=== PATIENT | female | born 1985 | race Caucasian/White ===

== ENCOUNTER 2020-10-12 11:09 | Outpatient (NON) | payer OTHER, SELFPAY ==
[2020-10-13 18:24] LABS: SARS-CoV-2 RNA PCR Negative
== END 2020-10-12 11:10 ==
LOC: ANHCOVIDDT 11:13
PROVIDERS: Visit Provider Physician Assistant Medical
DX: Z20.828 Contact with and (suspected) exposure to other viral communicable diseases (principal); R43.0 Anosmia; R43.2 Parageusia; R51.9 Headache, unspecified
CPT/HCPCS: 87635; C9803; U0003

== ENCOUNTER → 2022-04-04 10:43 | Outpatient (CLI) | payer BC, SELFPAY ==
--- NOTE | ~2022-04-04 | US_ITS ---
EXAMINATION: US OB <=14 wk fetus w TV DATE: 04/04/2022 11:25 INDICATION: First trimester dating and viability assessment TECHNIQUE: Real-time pelvic transabdominal and transvaginal ultrasound was performed. COMPARISON: None. FINDINGS: The uterus measures 12.6 x 6.0 x 8.0 cm. An approximately 3.4 x 3.2 x 3.7 cm isoechoic area of the right uterine body has the appearance of an intramural fibroid. There is an intrauterine gest ational sac. A yolk sac is identified. heart motion is identified measuring 176 beats per minut e (bpm) by M-mode Doppler. The crown rump length measures 2.4 cm , which correlates with an est imated gestational age of 9 weeks and 1 day(s) (+/-) 6 day(s). The right ovary measures 3.3 x 2.8 x 2.9 cm. There appears to be a 1.8 cm corpus luteum of the right ovary. The left ovary measures 3.6 x 2.1 x 3.4 cm. There is normal vascular flow in the ovaries. Ther e is no free fluid in the pelvis. IMPRESSION: 1. Live intrauterine with an estimated gestational age of 9 weeks and 1 day(s) (+/-) 6 day( s) and an estimated delivery date of 11/06/2022. Reviewed, dictated and finalized at location A. IMPRESSION: 1. Live intrauterine with an estimated gestational age of 9 weeks and 1 day(s) (+/-) 6 day(s) and an estimated delivery date of 11/06/2022.
== END ==
PROVIDERS: PCP Family Medicine; Visit Provider Student in an Organized Health Care Education/Training Program
DX: Z34.91 Encounter for supervision of normal pregnancy, unspecified, first trimester (principal); Z3A.09 9 weeks gestation of pregnancy
CPT/HCPCS: 76801; 76817

== ENCOUNTER 2022-08-02 08:51 | Outpatient (CLI) | payer BC, SELFPAY ==
[2022-08-02 10:29] LABS: Basophils Absolute Auto 0.1 K/mm3 (0.0-0.1); Basophils Percent Auto 0.4 % (0.2-1.2); Eosinophils Absolute Auto 0.1 K/mm3 (0-0.3); Eosinophils Percent Auto 0.5 % (0-4.4); Hematocrit 34.6 % (37.0-47.0); Hemoglobin 11.6 g/dL (12.0-15.0); Immature Granulocyte Absolute 0.07 K/mm3 (0.00-0.031); Immature Granulocyte Percent A 0.5 % (0-0.5); Lymphocytes Absolute Auto 2.43 K/mm3 (0.9-3.2); Lymphocytes Percent Auto 18.7 % (18.3-44.2); Mean Corpuscular HGB Conc 33.5 g/dl (32-36); Mean Corpuscular Hemoglobin 30.4 pg (26-34); Mean Corpuscular Volume 90.6 fl (80-100); Monocytes Absolute Auto 0.7 K/mm3 (0.1-0.6); Monocytes Percent Auto 5.2 % (2.6-8.5); Neutrophils Absolute Auto 9.7 K/mm3 (1.3-6.7); Neutrophils Percent Auto 74.7 % (45.5-73.1); Platelet Count Result 295 k/mm3 (150-375); Red Blood Count 3.82 M/mm3 (4.2-5.4); Red Cell Distribution Width 13.2 % (11.5-14.5)
[2022-08-02 10:45] LABS: Glucose 1 Hour PP 50gm Dose 136 mg/dL
== END 2022-08-02 08:52 | disposition home or self-care (01) ==
PROVIDERS: PCP Family Medicine; Visit Provider Student in an Organized Health Care Education/Training Program
DX: Z34.82 Encounter for supervision of other normal pregnancy, second trimester (principal); Z3A.00 Weeks of gestation of pregnancy not specified
CPT/HCPCS: 36415; 82947; 85025

== ENCOUNTER 2022-08-04 07:05 | Outpatient (CLI) | payer BC, SELFPAY ==
[2022-08-04 07:36] LABS: Glucose Fasting Gestational 90 mg/dL (>/=95)
[2022-08-04 09:21] LABS: Glucose 1 Hour Gest 136 mg/dL (>/=180)
[2022-08-04 10:07] LABS: Glucose 2 Hour Gest 139 mg/dL (>/= 155)
[2022-08-04 11:51] LABS: Glucose 3 Hour Gest 90 mg/dL (>/=140)
== END 2022-08-04 07:06 | disposition home or self-care (01) ==
LOC: ANHLAB 07:06
PROVIDERS: PCP Family Medicine; Visit Provider Student in an Organized Health Care Education/Training Program
DX: R73.09 Other abnormal glucose (principal)
CPT/HCPCS: 36415; 82951; 82952

== ENCOUNTER 2022-10-05 16:19 | Outpatient (CLI) | payer BC, SELFPAY ==
[2022-10-05 16:46] VITALS: BP 144/90; PULSE 119
[2022-10-05 17:01] VITALS: BP 138/87; PULSE 116
[2022-10-05 17:15] LABS: Basophils Percent Auto 0.2 % (0.2-1.2); Eosinophils Percent Auto 0.2 % (0-4.4); Hematocrit 36.6 % (37.0-47.0); Hemoglobin 12.6 g/dL (12.0-15.0); Immature Granulocyte Absolute 0.08 K/mm3 (0.00-0.031); Immature Granulocyte Percent A 0.6 % (0-0.5); Lymphocytes Absolute Auto 2.75 K/mm3 (0.9-3.2); Mean Corpuscular HGB Conc 34.4 g/dl (32-36); Mean Corpuscular Volume 87.1 fl (80-100); Mean Platelet Volume 11.9 fl (7.4-10.4); Monocytes Percent Auto 7.4 % (2.6-8.5); Neutrophils Absolute Auto 9.8 K/mm3 (1.3-6.7); Neutrophils Percent Auto 71.6 % (45.5-73.1); Platelet Count Result 285 k/mm3 (150-375); Red Cell Distribution Width 13.4 % (11.5-14.5); White Blood Count 13.7 K/mm3 (4.5-10.0)
[2022-10-05 17:16] VITALS: BP 125/81; PULSE 93
[2022-10-05 17:22] LABS: Appearance Urine Slightly Cloudy (Clear); Bilirubin Urine Negative (Negative); Blood Urine Negative (Negative); Color Urine Yellow (Yellow); Glucose Urine UA Negative (Negative); Ketones Urine 3+ mg/dL (Negative); Leukocyte Esterase Ur Negative LEU/UL (NEGATIVE); Nitrate Urine Negative (Negative); Protein Urine Negative (Negative); Specific Grav Ur >= 1.030 (1.001-1.035); Urobilinogen Urine 0.2 mg/dL (<2.0); pH Urine 5.5 (5.0-9.0)
[2022-10-05 17:28] VITALS: BP 125/81; PULSE 108
[2022-10-05 17:28] LABS: Alanine Aminotransferase 20 U/L (6-35); Albumin Level 3.7 g/dL (3.5-5.1); Alkaline Phosphatase 167 U/L (38-126); Anion Gap 12 mmol/L (8-16); Aspartate Amino Transferase 23 U/L (14-36); Bilirubin,Total 0.4 mg/dL (0.2-1.3); Blood Urea Nitrogen 5 mg/dL (7-17); Calcium 9.1 mg/dL (8.4-10.2); Carbon Dioxide 22 mmol/L (22-30); Chloride 103 mmol/L (98-107); Estimated Glomerular Filt Rate > 60; Glucose 81 mg/dL (65-110); Potassium 3.4 mmol/L (3.4-5.0); Sodium 137 mmol/L (137-145); Uric Acid 3.2 mg/dL (2.5-7.5)
[2022-10-05 17:29] LABS: Bacteria Urine Trace /hpf; Creatinine Urine 117.8 mg/dL; Mucus Urine Few /lpf; Squamous Epithelial Cell Urine Occasional /hpf (Few); Total Protein Urine Random 21 mg/dL; Ur Ttl Prot Creatinine Ratio 0.18 mg/mg (0-0.20); WBC Urine 0-3 /hpf (0-3)
[2022-10-05 17:31] VITALS: BP 134/87; PULSE 88
[2022-10-05 17:43] LABS: Add Urine Microscopic? YES
== END 2022-10-05 17:49 | disposition home or self-care (01) ==
LOC: ANHOBOP 16:22 → ANHLDR 16:22
PROVIDERS: PCP Family Medicine; Visit Provider Student in an Organized Health Care Education/Training Program
DX: O13.9 Gestational [pregnancy-induced] hypertension without significant proteinuria, unspecified trimester (principal); Z3A.00 Weeks of gestation of pregnancy not specified
CPT/HCPCS: 36415; 59025; 80053; 81001; 82570; 84156; 84550; 85025; 87086; 99199

== ENCOUNTER 2022-10-11 09:05 | Outpatient (CLI) | payer BC, SELFPAY ==
[2022-10-11 09:35] LABS: Hematocrit 36.5 % (37.0-47.0); Hemoglobin 12.5 g/dL (12.0-15.0); Mean Corpuscular HGB Conc 34.2 g/dl (32-36); Mean Corpuscular Hemoglobin 29.8 pg (26-34); Mean Corpuscular Volume 87.1 fl (80-100); Mean Platelet Volume 11.8 fl (7.4-10.4); Platelet Count Result 290 k/mm3 (150-375); Red Blood Count 4.19 M/mm3 (4.2-5.4); Red Cell Distribution Width 13.4 % (11.5-14.5); White Blood Count 13.4 K/mm3 (4.5-10.0)
[2022-10-11 15:32] LABS: Rapid Plasma Reagin Non-Reactive (NonReactive)
== END 2022-10-11 09:06 | disposition home or self-care (01) ==
LOC: ANHLAB 09:08
PROVIDERS: PCP Family Medicine; Visit Provider Student in an Organized Health Care Education/Training Program
DX: Z34.93 Encounter for supervision of normal pregnancy, unspecified, third trimester (principal); Z3A.00 Weeks of gestation of pregnancy not specified
CPT/HCPCS: 36415; 85027; 86592; 86850; 86900; 86901

== ENCOUNTER 2022-10-13 05:25 | Inpatient (IN) | payer BC, SELFPAY ==
--- NOTE | 2022-10-12 17:41 | PM.IMHP ---
H&P: HPI History of Present Illness Date/Time: 10/12/22 17:41 Chief Complaint: IUP at 37 weeks gestation Gestational hypertension Previous section x1 Desires permanent sterilization Narrative: Patient is a 36-year-old LMP 01/27/2022 currently 37 weeks gestation with BRICE 11/03/2022 who presents to labor and delivery for scheduled repeat section. Patient is dated by LMP consistent with ultrasound on 04/04/2022 at 9 weeks gestation. Patient has a history of gestational hypertension in previous and over the past few weeks has subsequently developed gestational hypertension in current . Patient has a history of one previous section. Declines TOLAC. In general, patient reports feeling well. Denies any headache, chest pain, shortness of breath, nausea, vomiting, right upper quadrant tenderness, or visual disturbances. She also denies any vaginal bleeding, leakage of fluid, or contractions. Reports good movement. Patient does not desire any future fertility and desires permanent sterilization to be performed at time of section. Review of Systems Review of Systems: All systems reviewed & are unremarkable except as noted in HPI and below Constitutional: Constitutional: Reports as per HPI and Reports no additional constitutional complaints Eyes: Eyes: Reports as per HPI and Reports no additional eye complaints ENT: Reports system reviewed and no additional complaints, except as documented and Reports as per HPI Cardiovascular: Cardiovascular: Reports as per HPI and Reports no additional cardiovascular complaints Respiratory: Respiratory: Reports as per HPI and Reports no additional respiratory complaints Gastrointestinal: Gastrointestinal: Reports as per HPI and Reports no additional gastrointestinal complaints Genitourinary: Genitourinary: Reports no additional female genitourinary complaints and Reports as per HPI Musculoskeletal: Musculoskeletal: Reports no additional musculoskeletal complaints and Reports as per HPI Integumentary/Breasts: Skin/Breast: Reports system reviewed and no additional complaints, except as docu and Reports as per HPI Neurologic: Reports system reviewed and no additional complaints, except as documented and Reports as per HPI Psychiatric: Psychiatric: Reports no additional psychiatric complaints and Reports as per HPI Endocrine: Endocrine: Reports no additional endocrine complaints and Reports as per HPI Hematologic/Lymphatic: Hematologic/Lymphatic: Reports no additional hematologic/lymphatic complaints and Reports as per HPI Allergic/Immunologic: Allergic/Immunologic: Reports no additional allergic/immunologic complaints and Reports as per HPI PMFSH Past Medical History Medical History Human papillomavirus 2010 Other specified viral warts Post- depression Unspecified maternal hypertension, complicating childbirth Surgical History Surgical History History of section x 1 2017 Hx laparoscopic cholecystectomy 07.18.19 Family History Family History Father Hypertension Alcoholism Grandparent Carcinoma of colon Hypertension Cerebrovascular accident Mother Hypertension Thyroid disorder Social History Social History Smoking status: Never smoker Smoking end date: 11/26/08 Alcohol intake: never Substance use: never Spiritual care concerns: No Meds Home Medications and Allergies Home Medications Medication Instructions Recorded Confirmed Type prenat.vits,sabina,jyi-lbdh-xgehz 1 tablet PO DAILY 03/30/22 History aspirin 81 mg tablet,delayed 81 mg PO DAILY 07/05/22 History release cholecalciferol (vitamin D3) 25 25 mcg PO DAILY 07/05/22 History mcg (1,000 unit) capsule
[2022-10-13] VITALS (61 sets, daily range): BP systolic 118–152; BP diastolic 72–95; PULSE 52–108; RESP 16–18; TEMP 36.5–37.8; O2SAT 97–100; BMI 43.3
--- NOTE | 2022-10-13 06:19 | LDADM ---
This patient, Anya Pickering, was admitted to Labor/Delivery/Recovery 120 on 10/13/22 at 05:25. Plans for labor, pain management and were discussed with patient. Patient/family oriented to hospital policies and general routines including ID bracelet, bed and alarms, visiting hours, pain management, procedures, bathroom and other care routines, personal items, smoking policy, room service/diet and guest tray routines, security routines, and visiting hours. Patient/Family are encouraged to report perceived risks to care and to ask questions if they do not understand what they are told or what they should do. See OBIX for further documentation.
[2022-10-13] MEDS: LACTATED RINGERS 1,000 ML 125 ML IV CONT ×2 (06:30→08:00)
--- NOTE | 2022-10-13 07:37 | WPDHPUPDATE1 ---
History and Physical Update Update Date/Time: 10/13/22 07:37 History and Physical has been reviewed, including an updated exam of the patient. There are NO changes in the patient's condition. Risks, benefits, and alternatives have been discussed and questions answered. Patient agrees to proceed with procedure.
[2022-10-13] MEDS: ceFAZolin 2 GM/D5W 50 ML 2 GM/50 ML BAG IVPB (08:11)
--- NOTE | 2022-10-13 10:11 | W.PM.PROC2 ---
Procedure Note - Detailed Date of Procedure 10/13/22 Pre-op Diagnosis IUP at 37w gestation Gestational hypertension Previous C/S x 1 Declines TOLAC Desires permanent sterilization Post-op Diagnosis Same Procedure Performed Repeat low transverse section via Pfannenstiel Bilateral tubal ligation via modified [place] method Surgeon Krystyna Riley MD [employer] Laura Wong Anesthesia Spinal Findings Live male in cephalic presentation, apgars 8/9, weighing 7 lbs. 14 oz., clear amniotic fluid, normal appearing uterus, ovaries, and fallopian tubes bilaterally, approx. 2cm left paratubal cyst Description of Procedure The patient was taken to the operating room, where she self-transferred to the operating room table. Spinal anesthesia was administered and found to be adequate. The patient was placed in dorsal supine position with a leftward tilt. She was prepped and draped in the usual sterile fashion. Spinal anesthesia was tested and found to be adequate. A Pfannenstiel skin incision was made with a scalpel and carried through to underlying layer of fascia with the Bovie. The fascia was incised in the midline and the incision was extended laterally with the use of forceps and De Souza scissors. The inferior aspect of the fascial incision was grasped with Jeremias clamps, elevated, and the underlying rectus muscle were dissected off with De Souza scissors. Attention was then turned to the superior aspect of the fascial incision, which in a similar manner, was grasped with Jeremias clamps, elevated, and the underlying rectus muscles were also dissected off with De Souza scissors. The rectus muscles were in the midline and the peritoneal cavity was entered bluntly. This incision was extended superiorly and inferiorly with good visualization of the bladder and care was taken to avoid blood vessels. A bladder blade was inserted. The vesicouterine peritoneum was identified and incised sharply with Metzenbaum scissors. This incision was extended laterally with Metzenbaum scissors and a bladder flap was created digitally. The bladder blade was replaced. A low-transverse uterine incision was made with a scalpel. This incision was extended laterally with bandage scissors. Amniotomy was performed. Clear amniotic fluid was noted. The 's head was grasped and gently guided to the level of the uterine incision. The 's head was delivered easily and atraumatically without difficulty followed by the neck, shoulders, and rest of body with gentle fundal pressure. The 's nose and mouth were suctioned bulb suction. The infant was crying spontaneously. The cord was clamped and cut and the was handed off to waiting nursing staff. A segment of cord was collected for cord gases. Cord blood was also collected. The placenta was then delivered manually with gentle uterine massage. Uterus was exteriorized and cleared of all clots and debris. The uterine incision was reapproximated with 0 Vicryl in a running, locked fashion. A second imbricating layer using 0 Monocryl performed. A small area of bleeding was noted along incision just right of midline. A figure of eight suture using 0 Monocryl was made. Excellent hemostasis was noted. On inspection, the uterus, ovaries, and fallopian tubes appeared to be normal bilaterally. A 2 cm paratubal cyst on the left side was visualized. Attention was then turned to the left fallopian tube, which was identified and followed through to the fimbriated end. The tube was grasped with a [place] clamp and elevated. With the use of Bovie, a window was created in the mesosalpinx just beneath the tube. Four free ties using 2-0 plain suture were used to create an intervening segment of tube. Two sutures were placed on either side of the intervening segment of tube. An approximate 3 cm segment of intervening tube was then excised with Metzenbaum scissors. The excised portion of the tube was handed off the field to be sent to pathology for analysis
[2022-10-13] MEDS: KETOROLAC 30 MG/ML VIAL (*BKC) IV PUSH (12:08)
--- NOTE | 2022-10-13 12:28 | PC.NURSE ---
Patient transferred to post room #283 via stretcher. Support person present. Oriented to unit, room, information board, rooming in, admission packet and security measures. Patient verbalizes understanding.
[2022-10-13] MEDS: DEXTROSE 5%/0.45% SOD CHL 1,000 ML 125 ML IV CONT (13:02)
[2022-10-13] MEDS: IBUPROFEN 600 MG TABLET PO (18:16)
[2022-10-13] MEDS: HYDROcodone/acetaminophen (*CRX) 5-325 MG TABLET 1 TAB PO ×2 (18:17→23:40)
[2022-10-13] MEDS: DOCUSATE SODIUM 100 MG CAPSULE PO (18:17)
[2022-10-14] MEDS: IBUPROFEN 600 MG TABLET PO ×3 (03:42→17:04)
[2022-10-14] MEDS: SIMETHICONE 80 MG TAB.CHEW PO ×2 (03:53→18:50)
[2022-10-14 04:00] VITALS: BP 158/86; PULSE 110; RESP 20; TEMP 36.7; O2SAT 100
[2022-10-14 05:19] LABS: Basophils Percent Auto 0.3 % (0.2-1.2); Eosinophils Percent Auto 0.2 % (0-4.4); Hematocrit 33.7 % (37.0-47.0); Hemoglobin 11.6 g/dL (12.0-15.0); Immature Granulocyte Absolute 0.09 K/mm3 (0.00-0.031); Immature Granulocyte Percent A 0.6 % (0-0.5); Lymphocytes Absolute Auto 1.86 K/mm3 (0.9-3.2); Lymphocytes Percent Auto 12.3 % (18.3-44.2); Mean Corpuscular HGB Conc 34.4 g/dl (32-36); Mean Corpuscular Hemoglobin 30.4 pg (26-34); Mean Corpuscular Volume 88.2 fl (80-100); Mean Platelet Volume 11.6 fl (7.4-10.4); Monocytes Absolute Auto 1.1 K/mm3 (0.1-0.6); Monocytes Percent Auto 7.4 % (2.6-8.5); Neutrophils Percent Auto 79.2 % (45.5-73.1); Platelet Count Result 215 k/mm3 (150-375); Red Blood Count 3.82 M/mm3 (4.2-5.4); Red Cell Distribution Width 13.5 % (11.5-14.5); White Blood Count 15.1 K/mm3 (4.5-10.0)
[2022-10-14 07:15] VITALS: BP 153/86; PULSE 79; RESP 16; TEMP 36.8; O2SAT 100
[2022-10-14] MEDS: DOCUSATE SODIUM 100 MG CAPSULE PO ×2 (07:36→16:37)
[2022-10-14] MEDS: MULTIVIT/MIN/PREN/FOL AC/IRON TABLET 1 TAB PO (07:37)
[2022-10-14] MEDS: HYDROcodone/acetaminophen (*CRX) 5-325 MG TABLET 1 TAB PO ×5 (07:37→21:35)
--- NOTE | 2022-10-14 08:55 | WPDANLDPN2 ---
Anes-Prog Note L&D Date/Time: 10/14/22 08:55 Comfortable throughout: section Neuraxial method: spinal Epidural/Spinal procedure site: clean & non-tender Neuro status: Neuro function grossly intact. Cardiovascular status: normal Respiratory status: normal Airway patency: baseline Mental status: baseline Post-Op hydration status: normal Vital Signs: Last Vital Signs Temp 36.7 C 10/14/22 04:00 Pulse 110 H 10/14/22 04:00 Resp 20 10/14/22 04:00 BP 158/86 H 10/14/22 04:00 Pulse Ox 100 10/14/22 04:00 O2 Del Method Room Air 10/13/22 12:07 Pain score (VAS): 2/10 I/O: Intake & Output 10/13/22 10/14/22 10/14/22 23:59 07:59 15:59 Intake Total 2620 250 Output Total 2225 1100 Balance 395 -850 Post-procedural complaints: none Patient feedback: Patient satisfied with anesthetic care.
--- NOTE | 2022-10-14 08:56 | WPDANLDNPN2 ---
Anes-Prog Note L&D-Neuraxial Date/Time: 10/14/22 08:56 Neuraxial medications: intrathecal PF morphine Opiod-related complaints: none Patient feedback: Patient satisfied with post-operative pain management.
--- NOTE | 2022-10-14 10:53 | PM.OBPNVD ---
OB - PN: Subj Subjective Date/time seen: 10/14/22 10:53 Patient doing well this AM. States that abdominal/incision pain is reasonably controlled with medication. Reported mild headache earlier, however, patient thinks this was due to caffeine. Denies any chest pain, SOB, N/V. Tolerating PO diet. Reports gas discomfort and feeling bloated. Also reports some referred shoulder pain. Voiding without difficulty. Ambulating well. Passing flatus. OB - PN: Obj Data Labs CBC & Chem 7: 10/14/22 05:11 Labs: Laboratory Results - last 24 hr 10/14/22 05:11 WBC 15.1 H RBC 3.82 L Hgb 11.6 L Hct 33.7 L MCV 88.2 MCH 30.4 MCHC 34.4 RDW 13.5 Plt Count 215 MPV 11.6 H Immature Gran % (Auto) 0.6 H Neut % (Auto) 79.2 H Lymph % (Auto) 12.3 L [place] % (Auto) 7.4 Eos % (Auto) 0.2 Baso % (Auto) 0.3 Lymph # (Auto) 1.86 [place] # (Auto) 1.1 H Eos # (Auto) 0.0 Baso # (Auto) 0.0 Abs Immat Gran (auto) 0.09 H Absolute Neuts (auto) 12.0 H Absolute Nucleated RBC 0.0 Nucleated RBC % 0.0 OB - PN A/P Assessment and Plan (1) Delivery by section using transverse incision of lower segment of uterus: Code(s): O82 - Encounter for delivery without indication Status: Acute Assessment and Plan: POD#1 doing well continue routine postoperative care pain management PRN encourage ambulation and use of IS (2) Gestational hypertension: Code(s): O13.9 - Gestational [-induced] hypertension without significant proteinuria, unspecified trimester Status: Acute Assessment and Plan: pt with hx of GHTN BP elevated, now 140-150s/80-90s asymptomatic will obtain labs begin Labetalol 200mg BID will continue to monitor Time Spent With Patient Time: Total time spent is greater than 50% in coordination of care (as documented) at patient's floor/unit and/or counseling patient: Review of Systems Review of Systems: All systems reviewed & are unremarkable except as noted in HPI and below Exam Const: General: cooperative, healthy appearing, comfortable and no acute distress GI: Inspection: non-distended and obesity GI Palp: Yes Soft to palpation and Yes Tenderness to palpation present (GI) (appropriately) Other: inc covered with bandage, bandage c/d/i Extrem: Right lower extremity: no edema Left lower extremity: no edema Other: no calf tenderness
[2022-10-14 12:00] VITALS: PULSE 100
[2022-10-14] MEDS: LABETALOL HCL 100 MG TABLET 200 MG (12:00)
[2022-10-14 12:09] LABS: Basophils Percent Auto 0.2 % (0.2-1.2); Eosinophils Percent Auto 0.1 % (0-4.4); Hematocrit 32.3 % (37.0-47.0); Hemoglobin 10.8 g/dL (12.0-15.0); Immature Granulocyte Percent A 0.7 % (0-0.5); Lymphocytes Absolute Auto 2.16 K/mm3 (0.9-3.2); Lymphocytes Percent Auto 15.2 % (18.3-44.2); Mean Corpuscular HGB Conc 33.4 g/dl (32-36); Mean Corpuscular Hemoglobin 30.3 pg (26-34); Mean Corpuscular Volume 90.5 fl (80-100); Mean Platelet Volume 11.6 fl (7.4-10.4); Monocytes Percent Auto 7.3 % (2.6-8.5); Neutrophils Absolute Auto 10.8 K/mm3 (1.3-6.7); Neutrophils Percent Auto 76.5 % (45.5-73.1); Platelet Count Result 231 k/mm3 (150-375); Red Blood Count 3.57 M/mm3 (4.2-5.4); Red Cell Distribution Width 13.8 % (11.5-14.5); White Blood Count 14.2 K/mm3 (4.5-10.0)
[2022-10-14 12:20] LABS: Alanine Aminotransferase 18 U/L (6-35); Alkaline Phosphatase 142 U/L (38-126); Anion Gap 5 mmol/L (8-16); Aspartate Amino Transferase 29 U/L (14-36); Bilirubin,Total 0.5 mg/dL (0.2-1.3); Blood Urea Nitrogen 4 mg/dL (7-17); Calcium 8.3 mg/dL (8.4-10.2); Carbon Dioxide 22 mmol/L (22-30); Chloride 109 mmol/L (98-107); Estimated CRCL calculation 191 ml/min; Estimated Glomerular Filt Rate > 60; Glucose 110 mg/dL (65-110); Potassium 3.3 mmol/L (3.4-5.0); Sodium 136 mmol/L (137-145)
[2022-10-14] MEDS: TETANUS,DIPHTHERIA,AC PERTUSSIS ADULT (0.5 ML) BOOSTRIX IM (15:12)
[2022-10-14 15:15] VITALS: BP 144/88; PULSE 97
[2022-10-14 18:40] VITALS: BP 133/77; PULSE 106; RESP 16; TEMP 36.5
[2022-10-14 21:15] VITALS: BP 127/71; PULSE 100; RESP 16; TEMP 36.4
[2022-10-14] MEDS: LABETALOL HCL 100 MG TABLET 200 MG PO (21:15)
[2022-10-15] VITALS (7 sets, daily range): BP systolic 124–176; BP diastolic 73–99; PULSE 91–95; RESP 16; TEMP 36.5–37.1; O2SAT 90–100
[2022-10-15] MEDS: IBUPROFEN 600 MG TABLET PO ×3 (01:33→15:32)
[2022-10-15] MEDS: HYDROcodone/acetaminophen (*CRX) 5-325 MG TABLET 1 TAB PO ×4 (01:33→15:32)
[2022-10-15] MEDS: DOCUSATE SODIUM 100 MG CAPSULE PO ×2 (08:30→16:37)
[2022-10-15] MEDS: MULTIVIT/MIN/PREN/FOL AC/IRON TABLET 1 TAB PO (08:30)
[2022-10-15] MEDS: LABETALOL HCL 100 MG TABLET 200 MG PO (08:37)
--- NOTE | 2022-10-15 11:36 | P.PNOB_ITS ---
OB - PN: Subj Subjective Date/time seen: 10/15/22 11:36 Patient doing well. Pain reasonably controlled with medication. Denies any headache, chest pain, SOB, N/V, visual disturbances, or RUQ tenderness. Tolerating PO diet well. Ambulating well. Voiding without difficulty. Passing flatus and BM. Minimal lochia. OB - PN: Obj Data Labs CBC & Chem 7: 10/14/22 11:56 10/14/22 11:56 Labs: Laboratory Results - last 24 hr 10/14/22 10/14/22 11:56 11:56 WBC 14.2 H RBC 3.57 L Hgb 10.8 L Hct 32.3 L MCV 90.5 MCH 30.3 MCHC 33.4 RDW 13.8 Plt Count 231 MPV 11.6 H Immature Gran % (Auto) 0.7 H Neut % (Auto) 76.5 H Lymph % (Auto) 15.2 L Piatt % (Auto) 7.3 Eos % (Auto) 0.1 Baso % (Auto) 0.2 Lymph # (Auto) 2.16 Piatt # (Auto) 1.0 H Eos # (Auto) 0.0 Baso # (Auto) 0.0 Abs Immat Gran (auto) 0.10 H Absolute Neuts (auto) 10.8 H Absolute Nucleated RBC 0.0 Nucleated RBC % 0.0 Sodium 136 L Potassium 3.3 L Chloride 109 H Carbon Dioxide 22 Anion Gap 5 L BUN 4 L Creatinine 0.40 L Estim Creat Clear Calc 191 Estimated GFR > 60 Glucose 110 Uric Acid 3.0 Calcium 8.3 L Total Bilirubin 0.5 AST 29 ALT 18 Alkaline Phosphatase 142 H Total Protein 6.0 L Albumin 3.0 L OB - PN A/P Assessment and Plan (1) Delivery by section using transverse incision of lower segment of uterus: Code(s): O82 - Encounter for delivery without indication Status: Acute Assessment and Plan: POD#2 doing well continue routine postoperative care encourage ambulation and use of IS anticipate dc home today (2) Gestational hypertension: Code(s): O13.9 - Gestational [-induced] hypertension without significant proteinuria, unspecified trimester Status: Acute Assessment and Plan: pt with GHTN currently on Labetalol 200mg BID BP WNL overnight elevated this AM, however, taken just prior to morning dose of medication will continue to monitor throughout the day (3) anxiety: Code(s): O99.345 - Other mental disorders complicating the puerperium; F41.8 - Other specified anxiety disorders Status: Acute Assessment and Plan: pt with history of anxiety was previously on Lexapro may restart now Time Spent With Patient Time: Total time spent is greater than 50% in coordination of care (as documented) at patient's floor/unit and/or counseling patient: Review of Systems Review of Systems: All systems reviewed & are unremarkable except as noted in HPI and below Exam Const: General: cooperative, healthy appearing, comfortable and no acute distress GI: Inspection: non-distended GI Palp: Yes Soft to palpation and Yes Te nderness to palpation present (GI) (appropriately tender) Other: inc c/d/i Extrem: Right lower extremity: no edema Left lower extremity: no edema Other: no calf tenderness
[2022-10-15] MEDS: ESCITALOPRAM OXALATE 10 MG TABLET PO (12:32)
[2022-10-15] MEDS: NIFEdipine 30 MG TAB.ER.24 PO (17:39)
[2022-10-15] MEDS: LABETALOL HCL 100 MG TABLET 300 MG PO (21:24)
[2022-10-16 00:05] VITALS: BP 150/92
[2022-10-16] MEDS: IBUPROFEN 600 MG TABLET PO ×2 (00:14→07:01)
[2022-10-16] MEDS: HYDROcodone/acetaminophen (*CRX) 5-325 MG TABLET 1 TAB PO ×2 (00:14→07:01)
[2022-10-16 05:55] VITALS: BP 140/89; O2SAT 99
[2022-10-16 08:00] VITALS: BP 138/81; PULSE 114; RESP 18; TEMP 37.6; O2SAT 98
[2022-10-16 08:01] VITALS: PULSE 96
[2022-10-16] MEDS: LABETALOL HCL 100 MG TABLET 300 MG PO (08:01)
[2022-10-16] MEDS: DOCUSATE SODIUM 100 MG CAPSULE PO (08:01)
[2022-10-16] MEDS: ESCITALOPRAM OXALATE 10 MG TABLET PO (08:02)
[2022-10-16] MEDS: MULTIVIT/MIN/PREN/FOL AC/IRON TABLET 1 TAB PO (08:04)
--- NOTE | 2022-10-16 08:38 | PM.OBPNVD ---
OB - PN: Subj Subjective Date/time seen: 10/16/22 08:38 Patient doing well. Pain well controlled with medication. Reported mild headache earlier, however, states that this is likely related to air quality in room. Denies any chest pain, SOB, N/V, visual disturbances, or RUQ tenderness. Tolerating PO diet well. Ambulating well. Voiding without difficulty. Passing flatus and BM. Minimal lochia. OB - PN: Obj Data Labs CBC & Chem 7: 10/14/22 11:56 10/14/22 11:56 OB - PN A/P Assessment and Plan (1) Delivery by section using transverse incision of lower segment of uterus: Code(s): O82 - Encounter for delivery without indication Status: Acute Assessment and Plan: POD#3 doing well continue routine postoperative care encourage ambulation and use of IS anticipate dc home today (2) Gestational hypertension: Code(s): O13.9 - Gestational [-induced] hypertension without significant proteinuria, unspecified trimester Status: Acute Assessment and Plan: pt with GHTN asymptomatic BP increased yesterday, dc held Labetalol increased to 300mg BID and Procardia XL 30mg QD added to regimen one severe range BP measurement overnight, pt stated she was extremely anxious during this reading improved this AM will continue to monitor this morning plan is to dc home today pending no further severe elevations (3) anxiety: Code(s): O99.345 - Other mental disorders complicating the puerperium; F41.8 - Other specified anxiety disorders Status: Acute Time Spent With Patient Time: Total time spent is greater than 50% in coordination of care (as documented) at patient's floor/unit and/or counseling patient: Review of Systems Review of Systems: All systems reviewed & are unremarkable except as noted in HPI and below Constitutional: Constitutional: Reports as per HPI and Reports no additional constitutional complaints Exam Const: General: cooperative, healthy appearing, comfortable and no acute distress GI: Inspection: non-distended GI Palp: Yes Soft to palpation and No Tenderness to palpation present (GI) Other: inc c/d/i Extrem: Right lower extremity: no edema Left lower extremity: no edema Other: no calf tenderness
--- NOTE | 2022-10-16 08:43 | PM.OBDSVD ---
DS: Admitting Diagnosis Discharge Date 10/16/22 Admitting Diagnosis IUP at 37w Gestational hypertension Previous C/S x 1 DS: Discharge Diagnosis Discharge Diagnosis (1) Delivery by section using transverse incision of lower segment of uterus: Code(s): O82 - Encounter for delivery without indication Status: Acute (2) Gestational hypertension: Code(s): O13.9 - Gestational [-induced] hypertension without significant proteinuria, unspecified trimester Status: Acute (3) anxiety: Code(s): O99.345 - Other mental disorders complicating the puerperium; F41.8 - Other specified anxiety disorders Status: Acute OB - DS: Summary OB Procedures : None OB Procedures Intrapartum: OB Procedures: : None Peripartum Data Procedures: Procedures Operation Date: 10/13/22 07:30 Actual Procedure Side Surgeon p Repeat Section with Tubal Ligation Not Applicable Krystyna Riley MD Time Spent with Patient Time attestation: Total time spent providing and/or coordinating discharge services: DS: Data Data Completed and Pending Pending studies at discharge: Pending at discharge 10/13/22 09:09 Surgical [PTH] Routine Discharge Plan Discharge Attending physician on discharge: Krystyna Riley Discharging Clinician: Krytsyna Riley Anticipated Discharge Date/Time: 10/16/22 12:00 Patient Disposition: Home, Self-Care Activity: pelvic rest Diet: regular Discharge Instructions: Call office ([phone]) to schedule the following appointments: 1. BP check in 1 week 2. Postoperative/wound check in 2 weeks. 2. visit in 4-6 weeks. You may take Ibuprofen 600mg every 6 hours as needed for pain. I have sent a prescription for a stronger pain medication, [place], to your pharmacy. You may take this as prescribed for breakthrough pain (pain that is not controlled with Ibuprofen). No driving for at least two weeks. You also may not drive while taking narcotics. Pain medication may make you constipated. It may be helpful to take an vdro-uyn-tpiyude stool softener, such as Colace and/or Senokot, along with the pain medication to help lessen constipation. I have also sent two blood pressure medications to your pharmacy, Labetalol and Nifedipine XL. Please take as prescribed. Please also take your BP measurements at home twice per day and record in log. Bring log to your follow up visits. Call office or go to L&D if top number (SBP) is >160 or bottom number (DBP) is >110. Call office or go to ED for pain not controlled with medication, headache, chest pain, shortness of breath, fever, chills, persistent nausea or vomiting, severe abdominal pain, heavy vaginal bleeding >2 pads/hour, foul vaginal discharge or odor, any redness near incision, severe pain, pus or drainage from incision site, or problems with your breasts. Patient Instructions: Antibiotic Form Stand Alone Forms: General Discharge Information Follow-up/Referrals: Krystyna Riley MD [Physician] - Discharge Medications: New hydrocodone-acetaminophen 5-325 mg Tablet 1 - 2 tablet PO Q4-6H PRN (Reason: Moderate Pain (4-6)) 7 Days Qty: 30 0RF escitalopram oxalate 10 mg Tablet 10 mg PO DAILY Qty: 10 0RF nifedipine [Procardia XL] 30 mg tablet extended release 24hr 30 mg PO DAILY Qty: 30 0RF labetalol 300 mg tablet 300 mg PO Q12H Qty: 60 0RF Continued prenat.vits,sabina,lqn-iray-pjwci Tablet 1 tablet PO DAILY Discontinued cholecalciferol (vitamin D3) 25 mcg (1,000 unit) capsule 25 mcg PO DAILY aspirin 81 mg tablet,delayed release (DR/EC) 81 mg PO DAILY Date of admission: 10/13/22 05:25 Primary Care Provider: Priscilla Bolanos Admitting Provider: Krystyna Riley Attending physician on admission: Krystyna Riley Condition: Stable
[2022-10-16 10:00] VITALS: BP 126/72; PULSE 99; RESP 16; TEMP 36.6; O2SAT 100
[2022-10-16 12:00] VITALS: BP 134/81; PULSE 90; RESP 16; TEMP 37.7; O2SAT 100
[2022-10-18 11:58] VITALS: BP 194/95; PULSE 84; RESP 20; TEMP 37.2; O2SAT 99
== END 2022-10-16 13:00 | disposition home or self-care (01) | DRG 785 ==
LOC: ANHLDR 05:29 → ANHOB2 12:59
PROVIDERS: Admitting Provider Student in an Organized Health Care Education/Training Program; PCP Family Medicine; Visit Provider Student in an Organized Health Care Education/Training Program
PROC: 10D00Z1 Extraction of Products of Conception, Low, Open Approach (ICD-10-PCS; CPT 59514; principal; 2022-10-13 07:30)
DX: O34.219 Maternal care for unspecified type scar from previous cesarean delivery (principal); Z30.2 Encounter for sterilization; O13.4 Gestational [pregnancy-induced] hypertension without significant proteinuria, complicating childbirth; Z3A.37 37 weeks gestation of pregnancy; Z37.0 Single live birth; O99.344 Other mental disorders complicating childbirth; F41.9 Anxiety disorder, unspecified; Z90.49 Acquired absence of other specified parts of digestive tract
CPT/HCPCS: 36415; 80053; 84550; 85025; 85027; 86592; 86850; 86900; 86901; 88302; 88307; 90715; A9270; J0131; J0690; J1885; J2175; J2274; J2590; J7120

== ENCOUNTER 2022-10-18 13:01 | Observation (INO) | payer BC, SELFPAY ==
[2022-10-18] VITALS (19 sets, daily range): BP systolic 130–162; BP diastolic 74–97; PULSE 70–89; RESP 16–18; TEMP 36.6
[2022-10-18 13:34] LABS: Basophils Percent Auto 0.4 % (0.2-1.2); Eosinophils Absolute Auto 0.1 K/mm3 (0-0.3); Eosinophils Percent Auto 1.3 % (0-4.4); Hematocrit 34.3 % (37.0-47.0); Hemoglobin 11.6 g/dL (12.0-15.0); Immature Granulocyte Absolute 0.07 K/mm3 (0.00-0.031); Immature Granulocyte Percent A 0.6 % (0-0.5); Lymphocytes Absolute Auto 1.84 K/mm3 (0.9-3.2); Mean Corpuscular HGB Conc 33.8 g/dl (32-36); Mean Corpuscular Hemoglobin 30.9 pg (26-34); Mean Corpuscular Volume 91.2 fl (80-100); Mean Platelet Volume 10.7 fl (7.4-10.4); Monocytes Absolute Auto 0.8 K/mm3 (0.1-0.6); Monocytes Percent Auto 7.6 % (2.6-8.5); Neutrophils Absolute Auto 7.9 K/mm3 (1.3-6.7); Neutrophils Percent Auto 73.1 % (45.5-73.1); Platelet Count Result 365 k/mm3 (150-375); Red Blood Count 3.76 M/mm3 (4.2-5.4); Red Cell Distribution Width 13.3 % (11.5-14.5); White Blood Count 10.8 K/mm3 (4.5-10.0)
[2022-10-18 13:45] LABS: Alanine Aminotransferase 26 U/L (6-35); Albumin Level 3.7 g/dL (3.5-5.1); Alkaline Phosphatase 151 U/L (38-126); Anion Gap 11 mmol/L (8-16); Aspartate Amino Transferase 30 U/L (14-36); Bilirubin,Total 0.4 mg/dL (0.2-1.3); Blood Urea Nitrogen 7 mg/dL (7-17); Calcium 8.9 mg/dL (8.4-10.2); Carbon Dioxide 24 mmol/L (22-30); Chloride 106 mmol/L (98-107); Estimated Glomerular Filt Rate > 60; Glucose 95 mg/dL (65-110); Potassium 3.9 mmol/L (3.4-5.0); Sodium 141 mmol/L (137-145); Uric Acid 4.4 mg/dL (2.5-7.5)
--- NOTE | 2022-10-18 13:49 | PM.IMHP ---
H&P: HPI History of Present Illness Date/Time: 10/18/22 13:49 Chief Complaint: evaluation Narrative: Patient is a 36-year-old POD#5 s/p RLTCS and BTL on 10/13/22 who presented to hospital for routine post check. Severe elevated blood pressure measurements were noted during evaluation. Patient has a history of gestational hypertension, which persisted during the immediate post period. Patient was started on labetalol as well as Procardia. BP was within normal limits upon discharge on 10/16/22. Patient reports mildly elevated blood pressure measurements at home since discharge, however, denies any severe elevations. During evaluation today, first blood pressure measurement was 190s/90s. subsequent measurements were lower, however, patient did have two subsequent SBP measurements in the 160s. Patient is asymptomatic. Denies any headache, chest pain, shortness of breath, nausea, vomiting, right upper quadrant tenderness, or visual disturbances. Decision made to admit patient for further blood pressure management. Review of Systems Review of Systems: All systems reviewed & are unremarkable except as noted in HPI and below Constitutional: Constitutional: Reports as per HPI and Reports no additional constitutional complaints Eyes: Eyes: Reports as per HPI and Reports no additional eye complaints ENT: Reports system reviewed and no additional complaints, except as documented and Reports as per HPI Cardiovascular: Cardiovascular: Reports as per HPI and Reports no additional cardiovascular complaints Respiratory: Respiratory: Reports as per HPI and Reports no additional respiratory complaints Gastrointestinal: Gastrointestinal: Reports as per HPI and Reports no additional gastrointestinal complaints Genitourinary: Genitourinary: Reports no additional female genitourinary complaints and Reports as per HPI Musculoskeletal: Musculoskeletal: Reports no additional musculoskeletal complaints and Reports as per HPI Integumentary/Breasts: Skin/Breast: Reports system reviewed and no additional complaints, except as docu and Reports as per HPI Neurologic: Reports system reviewed and no additional complaints, except as documented and Reports as per HPI Psychiatric: Psychiatric: Reports no additional psychiatric complaints and Reports as per HPI Endocrine: Endocrine: Reports no additional endocrine complaints and Reports as per HPI Hematologic/Lymphatic: Hematologic/Lymphatic: Reports no additional hematologic/lymphatic complaints and Reports as per HPI Allergic/Immunologic: Allergic/Immunologic: Reports no additional allergic/immunologic complaints and Reports as per HPI [facility] Past Medical History Medical History Human papillomavirus 2011 Other specified viral warts Post- depression Unspecified maternal hypertension, complicating childbirth Surgical History Surgical History History of section x 1 2017 Hx laparoscopic cholecystectomy 07.18.19 Family History Family History Father Hypertension Alcoholism Grandparent Carcinoma of colon Hypertension Cerebrovascular accident Mother Hypertension Thyroid disorder Social History Social History Smoking status: Former smoker Smoking end date: 11/26/08 Alcohol intake: never Substance use: never Lack of Transportation: No Lack of Food: Never True Current Housing: I Have Housing Concerned About Future Housing: No Difficulty Paying Gas/Electric Bills: No Difficulty Paying for Meds: No Currently Unemployed: No Education: Bachelor's Degree Difficulty w/ Childcare or Family Care: No Spiritual care concerns: No Meds Home Medications and Allergies Home Medications Medication Instructions Rec
[2022-10-18] MEDS: LACTATED RINGERS 1,000 ML 75 ML IV CONT (14:14)
[2022-10-18] MEDS: MAGNESIUM SULF 20GM/WATER500ML 500 ML 50 MG IV CONT (14:15)
[2022-10-18] MEDS: LABETALOL HCL 100 MG TABLET 300 MG PO (20:07)
[2022-10-18] MEDS: NIFEdipine 30 MG TAB.ER.24 60 MG PO (21:00)
[2022-10-19] VITALS (22 sets, daily range): BP systolic 123–157; BP diastolic 73–95; PULSE 78–102; RESP 16–20; TEMP 36.4–37; O2SAT 99–100
[2022-10-19] MEDS: MAGNESIUM SULF 20GM/WATER500ML 500 ML 50 MG IV CONT ×2 (00:13→10:19)
[2022-10-19] MEDS: LACTATED RINGERS 1,000 ML 75 ML IV CONT (03:39)
[2022-10-19] MEDS: LABETALOL HCL 100 MG TABLET 300 MG PO ×2 (07:35→15:45)
--- NOTE | 2022-10-19 09:32 | PM.OBPNVD ---
OB - PN: Subj Subjective Date/time seen: 10/19/22 09:32 Interval history: She has mild headache, no scotomata or RUQ pain. OB - PN: Obj Data Labs CBC & Chem 7: 10/18/22 13:19 10/18/22 13:19 Labs: Laboratory Results - last 24 hr 10/18/22 10/18/22 13:19 13:19 WBC 10.8 H RBC 3.76 L Hgb 11.6 L Hct 34.3 L MCV 91.2 MCH 30.9 MCHC 33.8 RDW 13.3 Plt Count 365 D MPV 10.7 H Immature Gran % (Auto) 0.6 H Neut % (Auto) 73.1 Lymph % (Auto) 17.0 L [place] % (Auto) 7.6 Eos % (Auto) 1.3 Baso % (Auto) 0.4 Lymph # (Auto) 1.84 [place] # (Auto) 0.8 H Eos # (Auto) 0.1 Baso # (Auto) 0.0 Abs Immat Gran (auto) 0.07 H Absolute Neuts (auto) 7.9 H Absolute Nucleated RBC 0.0 Nucleated RBC % 0.0 Sodium 141 Potassium 3.9 Chloride 106 Carbon Dioxide 24 Anion Gap 11 BUN 7 Creatinine 0.60 L Estim Creat Clear Calc Not Reportable Estimated GFR > 60 Glucose 95 Uric Acid 4.4 Calcium 8.9 Total Bilirubin 0.4 AST 30 ALT 26 Alkaline Phosphatase 151 H Total Protein 7.0 Albumin 3.7 OB - PN A/P Assessment and Plan (1) Preeclampsia in period: Code(s): O14.95 - Unspecified pre-eclampsia, complicating the puerperium Status: Acute Assessment and Plan: Blood pressures stable, urinating well. No signs or symptoms of severe pre-eclampsia. Labs this am. Anticipate D/C mag at 24 from initiation then observe BP and symptoms today. Time Spent With Patient Time: Total time spent is greater than 50% in coordination of care (as documented) at patient's floor/unit and/or counseling patient: Exam Const: General: comfortable and no acute distress Eyes: General: appearance normal, both eyes and all related structures Pupils: Dilated pupils Resp: Effort & Inspection: normal respiratory effort GI: Other: incision healing well, no RUQ pain Neuro: General: other (dtr 3+ neg clonus bilat) Extrem: Other: tr edema UE bilat nontender
[2022-10-19 09:57] LABS: Hematocrit 38.3 % (37.0-47.0); Hemoglobin 12.7 g/dL (12.0-15.0); Mean Corpuscular HGB Conc 33.2 g/dl (32-36); Mean Corpuscular Volume 90.5 fl (80-100); Mean Platelet Volume 10.3 fl (7.4-10.4); Platelet Count Result 398 k/mm3 (150-375); Red Blood Count 4.23 M/mm3 (4.2-5.4); Red Cell Distribution Width 13.3 % (11.5-14.5); White Blood Count 11.6 K/mm3 (4.5-10.0)
[2022-10-19 10:07] LABS: Alanine Aminotransferase 29 U/L (6-35); Albumin Level 3.9 g/dL (3.5-5.1); Alkaline Phosphatase 163 U/L (38-126); Anion Gap 9 mmol/L (8-16); Aspartate Amino Transferase 36 U/L (14-36); Bilirubin,Total 0.4 mg/dL (0.2-1.3); Blood Urea Nitrogen 6 mg/dL (7-17); Calcium 7.3 mg/dL (8.4-10.2); Carbon Dioxide 26 mmol/L (22-30); Chloride 103 mmol/L (98-107); Estimated Glomerular Filt Rate > 60; Glucose 112 mg/dL (65-110); Potassium 3.6 mmol/L (3.4-5.0); Sodium 138 mmol/L (137-145); Uric Acid 5.3 mg/dL (2.5-7.5)
--- NOTE | 2022-10-19 10:40 | PC.NURSE ---
Called Dr. Márquez with lab results. Orders received.
[2022-10-19] MEDS: ACETAMINOPHEN 500 MG TABLET 1000 MG PO (15:46)
[2022-10-19] MEDS: ESCITALOPRAM OXALATE 10 MG TABLET PO (18:22)
[2022-10-19] MEDS: NIFEdipine 30 MG TAB.ER.24 60 MG PO (21:20)
[2022-10-20] VITALS (10 sets, daily range): BP systolic 140–154; BP diastolic 75–92; PULSE 76–97; RESP 16–18; TEMP 37.2–37.3; O2SAT 99
[2022-10-20] MEDS: LABETALOL HCL 100 MG TABLET 300 MG PO ×2 (00:32→08:24)
[2022-10-20 05:24] LABS: Hematocrit 38.6 % (37.0-47.0); Hemoglobin 12.8 g/dL (12.0-15.0); Mean Corpuscular HGB Conc 33.2 g/dl (32-36); Mean Corpuscular Hemoglobin 30.2 pg (26-34); Mean Platelet Volume 10.7 fl (7.4-10.4); Platelet Count Result 439 k/mm3 (150-375); Red Blood Count 4.24 M/mm3 (4.2-5.4); Red Cell Distribution Width 13.3 % (11.5-14.5); White Blood Count 9.5 K/mm3 (4.5-10.0)
[2022-10-20 05:35] LABS: Alanine Aminotransferase 27 U/L (6-35); Albumin Level 3.8 g/dL (3.5-5.1); Alkaline Phosphatase 152 U/L (38-126); Anion Gap 11 mmol/L (8-16); Aspartate Amino Transferase 28 U/L (14-36); Bilirubin,Total 0.5 mg/dL (0.2-1.3); Blood Urea Nitrogen 8 mg/dL (7-17); Calcium 7.9 mg/dL (8.4-10.2); Carbon Dioxide 26 mmol/L (22-30); Chloride 103 mmol/L (98-107); Estimated Glomerular Filt Rate > 60; Glucose 95 mg/dL (65-110); Potassium 3.3 mmol/L (3.4-5.0); Sodium 140 mmol/L (137-145); Uric Acid 5.2 mg/dL (2.5-7.5)
[2022-10-20] MEDS: LOPERAMIDE HCL 2 MG CAPSULE 4 MG PO (09:39)
--- NOTE | 2022-10-20 10:46 | PM.OBPNVD ---
OB - PN: Subj Subjective Date/time seen: 10/20/22 10:46 Interval history: She denies headache scotomata or RUQ pain. Had liquid stools yesterday and this am and took Immodium. OB - PN: Obj Data Labs CBC & Chem 7: 10/20/22 04:47 10/20/22 04:47 Labs: Laboratory Results - last 24 hr 10/20/22 10/20/22 04:47 04:47 WBC 9.5 RBC 4.24 Hgb 12.8 Hct 38.6 MCV 91.0 MCH 30.2 MCHC 33.2 RDW 13.3 Plt Count 439 H MPV 10.7 H Sodium 140 Potassium 3.3 L Chloride 103 Carbon Dioxide 26 Anion Gap 11 BUN 8 Creatinine 0.60 L Estim Creat Clear Calc Not Reportable Estimated GFR > 60 Glucose 95 Uric Acid 5.2 Calcium 7.9 L Total Bilirubin 0.5 AST 28 ALT 27 Alkaline Phosphatase 152 H Total Protein 7.0 Albumin 3.8 OB - PN A/P Assessment and Plan (1) Preeclampsia in period: Code(s): O14.95 - Unspecified pre-eclampsia, complicating the puerperium Status: Acute Assessment and Plan: She is doing well. No pre-eclampsia symptoms. Blood pressures improving. Labs normal. Will discharge home. Discharge precautions given. Pre-eclampsia precautions given. She has an appointment scheduled for Sunday with Dr. Riley. Time Spent With Patient Time: Total time spent is greater than 50% in coordination of care (as documented) at patient's floor/unit and/or counseling patient: Exam Const: General: comfortable and no acute distress Eyes: General: appearance normal, both eyes and all related structures Resp: Effort & Inspection: normal respiratory effort GI: Other: incision healing well, no RUQ pain Neuro: General: other Coordination: other Extrem: Other: no edema bilat nontender bilat
== END 2022-10-20 10:54 | disposition home or self-care (01) ==
LOC: ANHOBOP 13:03 → ANHOBPP 13:08 → ANHOBOP 13:48 → ANHOBPP 10-20 10:58 → ANHLDR 11-03 11:10
PROVIDERS: Obstetrics & Gynecology; Admitting Provider Student in an Organized Health Care Education/Training Program; PCP Family Medicine; Visit Provider Student in an Organized Health Care Education/Training Program
DX: O14.95 Unspecified pre-eclampsia, complicating the puerperium (principal); Z87.891 Personal history of nicotine dependence; Z79.891 Long term (current) use of opiate analgesic; Z79.899 Other long term (current) drug therapy
CPT/HCPCS: 36415; 80053; 83735; 84550; 85025; 85027; 96365; 96366; 99199; A9270; G0378; G0379; J3475; J7120

== ENCOUNTER 2022-11-30 11:48 | Outpatient (CLI) | payer BC, SELFPAY ==
[2022-11-30 21:07] LABS: Alanine Aminotransferase 50 U/L (6-35); Albumin Level 4.6 g/dL (3.5-5.1); Alkaline Phosphatase 140 U/L (38-126); Anion Gap 8 mmol/L (8-16); Aspartate Amino Transferase 43 U/L (14-36); Bilirubin,Total 0.4 mg/dL (0.2-1.3); Blood Urea Nitrogen 7 mg/dL (7-17); Calcium 9.2 mg/dL (8.4-10.2); Carbon Dioxide 28 mmol/L (22-30); Chloride 100 mmol/L (98-107); Estimated Glomerular Filt Rate > 60; Glucose 96 mg/dL (65-110); Potassium 3.5 mmol/L (3.4-5.0); Sodium 136 mmol/L (137-145)
[2022-11-30 21:10] LABS: Thyroid Stimulating Hormone 0.688 uIU/mL (0.465-4.680)
== END 2022-11-30 11:49 | disposition home or self-care (01) ==
LOC: ANHGOSHLAB 11:50
PROVIDERS: PCP Family Medicine; Visit Provider Family Medicine
DX: R00.2 Palpitations (principal); O13.9 Gestational [pregnancy-induced] hypertension without significant proteinuria, unspecified trimester; Z3A.00 Weeks of gestation of pregnancy not specified
CPT/HCPCS: 36415; 80053; 84443

== ENCOUNTER 2023-01-01 08:31 | Outpatient (CLI) | payer BC, SELFPAY ==
[2023-01-01 21:03] LABS: Free T4 Free Thyroxine 1.06 ng/mL (0.78-2.19)
[2023-01-01 21:24] LABS: Alanine Aminotransferase 52 U/L (6-35); Albumin Level 4.4 g/dL (3.5-5.1); Alkaline Phosphatase 116 U/L (38-126); Anion Gap 8 mmol/L (8-16); Aspartate Amino Transferase 47 U/L (14-36); Bilirubin,Total 0.5 mg/dL (0.2-1.3); Blood Urea Nitrogen 10 mg/dL (7-17); Carbon Dioxide 26 mmol/L (22-30); Chloride 103 mmol/L (98-107); Estimated Glomerular Filt Rate > 60; Glucose 73 mg/dL (65-110); Potassium 4.2 mmol/L (3.4-5.0); Sodium 137 mmol/L (137-145)
[2023-01-01 21:47] LABS: Basophils Absolute Auto 0.1 K/mm3 (0.0-0.1); Basophils Percent Auto 0.5 % (0.2-1.2); Eosinophils Absolute Auto 0.1 K/mm3 (0-0.3); Eosinophils Percent Auto 0.8 % (0-4.4); Hematocrit 42.2 % (37.0-47.0); Hemoglobin 13.8 g/dL (12.0-15.0); Immature Granulocyte Absolute 0.02 K/mm3 (0.00-0.031); Immature Granulocyte Percent A 0.2 % (0-0.5); Lymphocytes Absolute Auto 3.34 K/mm3 (0.9-3.2); Mean Corpuscular HGB Conc 32.7 g/dl (32-36); Mean Corpuscular Hemoglobin 30.2 pg (26-34); Mean Corpuscular Volume 92.3 fl (80-100); Mean Platelet Volume 11.4 fl (7.4-10.4); Monocytes Absolute Auto 0.8 K/mm3 (0.1-0.6); Neutrophils Absolute Auto 5.3 K/mm3 (1.3-6.7); Neutrophils Percent Auto 55.5 % (45.5-73.1); Platelet Count Result 363 k/mm3 (150-375); Red Blood Count 4.57 M/mm3 (4.2-5.4); Red Cell Distribution Width 13.4 % (11.5-14.5); White Blood Count 9.6 K/mm3 (4.5-10.0)
[2023-01-02 11:43] LABS: Hemoglobin A1C 4.7 % (<5.7)
== END 2023-01-01 08:32 | disposition home or self-care (01) ==
LOC: ANHGOSHLAB 08:33
PROVIDERS: PCP Family Medicine; Visit Provider Family Medicine
DX: R79.89 Other specified abnormal findings of blood chemistry (principal); F41.9 Anxiety disorder, unspecified; F32.9 Major depressive disorder, single episode, unspecified; E66.9 Obesity, unspecified; Z68.36 Body mass index [BMI] 36.0-36.9, adult; Z86.39 Personal history of other endocrine, nutritional and metabolic disease; D75.839 Thrombocytosis, unspecified; R94.5 Abnormal results of liver function studies
CPT/HCPCS: 36415; 80053; 82248; 83036; 84439; 84443; 85025

== ENCOUNTER → 2023-01-09 08:11 | Outpatient (CLI) | payer BC, SELFPAY ==
--- NOTE | ~2023-01-09 | US_ITS ---
EXAMINATION: US abdomen limited DATE: 01/09/2023 08:41 INDICATION: Elevated liver function tests TECHNIQUE: Multiple grayscale and Doppler ultrasound images of the abdomen were obtained. COMPARISON: None available FINDINGS: The head and body of the pancreas are normal. The pancreatic tail is obscured by bowel gas. The liver is normal with normal echogenicity and echotexture. No surface nodularity. Normal hepatope lisa flow in the main portal vein. Gallbladder is surgically absent. The normal postcholecystectomy co mmon bile duct measures 8 mm. IMPRESSION: 1. No sonographic correlate for the patient's symptoms. Reviewed, dictated and finalized at location L. [employer]SEM[employer]ER
== END ==
PROVIDERS: PCP Family Medicine; Visit Provider Family Medicine
DX: R94.5 Abnormal results of liver function studies (principal)
CPT/HCPCS: 76705

== ENCOUNTER 2023-04-13 09:25 | Outpatient (CLI) | payer OTHER, SELFPAY ==
[2023-04-13 14:19] LABS: Basophils Absolute Auto 0.1 K/mm3 (0.0-0.1); Basophils Percent Auto 0.7 % (0.2-1.2); Eosinophils Absolute Auto 0.1 K/mm3 (0-0.3); Eosinophils Percent Auto 0.9 % (0-4.4); Hematocrit 40.9 % (37.0-47.0); Hemoglobin 13.3 g/dL (12.0-15.0); Immature Granulocyte Absolute 0.03 K/mm3 (0.00-0.031); Immature Granulocyte Percent A 0.3 % (0-0.5); Lymphocytes Absolute Auto 3.62 K/mm3 (0.9-3.2); Lymphocytes Percent Auto 34.3 % (18.3-44.2); Mean Corpuscular HGB Conc 32.5 g/dl (32-36); Mean Corpuscular Hemoglobin 29.4 pg (26-34); Mean Corpuscular Volume 90.3 fl (80-100); Mean Platelet Volume 11.1 fl (7.4-10.4); Monocytes Absolute Auto 0.8 K/mm3 (0.1-0.6); Monocytes Percent Auto 7.7 % (2.6-8.5); Neutrophils Absolute Auto 5.9 K/mm3 (1.3-6.7); Neutrophils Percent Auto 56.1 % (45.5-73.1); Platelet Count Result 351 k/mm3 (150-375); Red Blood Count 4.53 M/mm3 (4.2-5.4); Red Cell Distribution Width 12.5 % (11.5-14.5); White Blood Count 10.6 K/mm3 (4.5-10.0)
[2023-04-13 14:47] LABS: Alanine Aminotransferase 48 U/L (6-35); Albumin Level 4.2 g/dL (3.5-5.1); Alkaline Phosphatase 84 U/L (38-126); Aspartate Amino Transferase 44 U/L (14-36); Bilirubin,Total 0.4 mg/dL (0.2-1.3)
== END 2023-04-13 09:26 | disposition home or self-care (01) ==
LOC: ANHGOSHLAB 09:25
PROVIDERS: PCP Family Medicine; Visit Provider Family Medicine
DX: F32.9 Major depressive disorder, single episode, unspecified (principal); F41.9 Anxiety disorder, unspecified; R79.89 Other specified abnormal findings of blood chemistry
CPT/HCPCS: 36415; 80076; 84443; 85025

== ENCOUNTER 2023-09-11 11:26 | Outpatient (CLI) | payer SELFPAY ==
[2023-09-11 18:43] LABS: Alanine Aminotransferase 23 U/L (6-35); Albumin Level 4.1 g/dL (3.5-5.1); Alkaline Phosphatase 79 U/L (38-126); Aspartate Amino Transferase 27 U/L (14-36); Bilirubin,Total 0.5 mg/dL (0.2-1.3)
== END 2023-09-11 11:27 | disposition home or self-care (01) ==
LOC: ANHGOSHLAB 11:30
PROVIDERS: PCP Family Medicine; Visit Provider Family Medicine
DX: R79.89 Other specified abnormal findings of blood chemistry (principal)
CPT/HCPCS: 36415; 80076

== ENCOUNTER → 2023-10-10 09:11 | Outpatient (CLI) | payer BC, SELFPAY ==
--- NOTE | ~2023-10-10 | MMUS_ITS ---
EXAMINATION: MM diagnostic jhonathan BI w carlos a, US breast BI limited HISTORY: Palpable lump in the upper outer quadrant of the right breast TECHNIQUE: Craniocaudal, mediolateral, and mediolateral oblique 3-D tomosynthesis images of the breas ts were performed and synthetic 2-D images were generated. CAD analysis was submitted and interpreted . High resolution limited bilateral breast ultrasound was performed. COMPARISON: None, baseline BREAST PARENCHYMAL COMPOSITION: There are scattered areas of fibroglandular density. FINDINGS: MAMMOGRAPHIC FINDINGS: No mammographic correlate is identified for the reported palpable abnormality of concern in the right breast. There is focal asymmetry in the posterior third of the upper outer quadrant of left breast a t the 1:00 location. No suspicious calcification or architectural distortion are identified in either breast. ULTRASOUND: There is no evidence of focal abnormal solid or cystic mass in the vicinity of the reported palpable abnormality of concern in the right breast. In addition, no sonographic correlate is identified for t he left breast focal asymmetry. IMPRESSION: 1. No specific mammographic or sonographic correlate is identified for the reported palpable abnormal ity of concern. Further evaluation at this time should be based on clinical assessment. Continued fol low-up physical examination is recommended. 2. Recommend 6 month follow-up left diagnostic mammogram and possible ultrasound for the left breast focal asymmetry. BI-RADS category 3, probably benign findings. Reviewed, dictated and finalized at location A. GER MECHANICAL IMPRESSION: 1. No specific mammographic or sonographic correlate is identified for the repo rted palpable abnormality of concern. Further evaluation at this time should be based on clinical assessment. Continued follow-up physical examination is marija mmended. 2. Recommend 6 month follow-up left diagnostic mammogram and possible ultrasoun d for the left breast focal asymmetry. BI-RADS category 3, probably benign findings.
== END ==
PROVIDERS: PCP Family Medicine; Visit Provider Registered Nurse
DX: N63.11 Unspecified lump in the right breast, upper outer quadrant (principal); R92.8 Other abnormal and inconclusive findings on diagnostic imaging of breast
CPT/HCPCS: 76642; 77062; 77066; G0279

== ENCOUNTER 2024-02-28 11:47 | Outpatient (CLI) | payer BC, SELFPAY ==
[2024-02-28 13:18] LABS: Basophils Percent Auto 0.4 % (0.2-1.2); Eosinophils Percent Auto 0.5 % (0-4.4); Hematocrit 40.4 % (37.0-47.0); Hemoglobin 13.2 g/dL (12.0-15.0); Immature Granulocyte Absolute 0.02 K/mm3 (0.00-0.031); Immature Granulocyte Percent A 0.3 % (0-0.5); Lymphocytes Absolute Auto 2.87 K/mm3 (0.9-3.2); Lymphocytes Percent Auto 37.9 % (18.3-44.2); Mean Corpuscular HGB Conc 32.7 g/dl (32-36); Mean Corpuscular Hemoglobin 29.5 pg (26-34); Mean Corpuscular Volume 90.2 fl (80-100); Mean Platelet Volume 11.1 fl (7.4-10.4); Monocytes Absolute Auto 0.7 K/mm3 (0.1-0.6); Monocytes Percent Auto 9.1 % (2.6-8.5); Neutrophils Absolute Auto 3.9 K/mm3 (1.3-6.7); Neutrophils Percent Auto 51.8 % (45.5-73.1); Platelet Count Result 304 k/mm3 (150-375); Red Blood Count 4.48 M/mm3 (4.2-5.4); Red Cell Distribution Width 12.2 % (11.5-14.5); White Blood Count 7.6 K/mm3 (4.5-10.0)
[2024-02-28 14:02] LABS: Alanine Aminotransferase 28 U/L (6-35); Albumin Level 4.3 g/dL (3.5-5.1); Alkaline Phosphatase 84 U/L (38-126); Anion Gap 7 mmol/L (4-12); Aspartate Amino Transferase 38 U/L (14-36); Bilirubin,Total 0.4 mg/dL (0.2-1.3); Blood Urea Nitrogen 12 mg/dL (7-17); Calcium 9.3 mg/dL (8.4-10.2); Carbon Dioxide 25 mmol/L (22-30); Chloride 105 mmol/L (98-107); Cholesterol 196 mg/dL (0-200); Estimated Glomerular Filt Rate > 60; Glucose 93 mg/dL (65-110); HDL Direct 49 mg/dL; Sodium 137 mmol/L (137-145); Triglycerides 100 mg/dL (<150)
[2024-02-28 14:13] LABS: LDL Cholesterol Direct 123 mg/dL
[2024-02-29 00:09] LABS: Hemoglobin A1C 4.8 % (<5.7)
== END 2024-02-28 11:48 | disposition home or self-care (01) ==
LOC: ANHGOSHLAB 11:48
PROVIDERS: PCP Family Medicine; Visit Provider Family Medicine
DX: E66.9 Obesity, unspecified (principal); I10 Essential (primary) hypertension; Z68.36 Body mass index [BMI] 36.0-36.9, adult
CPT/HCPCS: 36415; 80053; 80061; 83036; 84443; 85025

== ENCOUNTER 2024-04-16 08:54 | Outpatient (CLI) | payer BC, SELFPAY ==
--- NOTE | ~2024-04-16 | MMUS_ITS ---
EXAMINATION: MM diagnostic jhonathan LT w carlos a, US breast LT limited HISTORY: Follow-up left breast asymmetry TECHNIQUE: Additional 3-D tomosynthesis images of the left breast were performed and synthetic 2-D im ages were generated. CAD analysis was submitted and interpreted. High resolution Limited left breast ultrasound was performed. COMPARISON: 10/10/2013 BREAST PARENCHYMAL COMPOSITION: Not dense: There are scattered areas of fibroglandular density. FINDINGS: MAMMOGRAPHIC FINDINGS: Stable asymmetry in the upper outer quadrant of the left breast. No discrete mass or architectural di stortion. There are no suspicious calcifications. ULTRASOUND: Limited left breast ultrasound: Normal heterogeneous echotexture without focal solid or cystic mass. IMPRESSION: 1. No evidence for malignancy in the left breast. 2. Routine yearly screening mammogram and regular clinical breast examination are recommended. BI-RADS Category 1: Negative Reviewed, dictated and finalized at location A. IMPRESSION: 1. No evidence for malignancy in the left breast. 2. Routine yearly screening mammogram and regular clinical breast examination a re recommended. BI-RADS Category 1: Negative
== END 2024-04-16 08:55 ==
LOC: MICIMG 08:55
PROVIDERS: PCP Family Medicine; Visit Provider Family Medicine
DX: R92.8 Other abnormal and inconclusive findings on diagnostic imaging of breast (principal)
CPT/HCPCS: 76642; 77061; 77065; G0279

== ENCOUNTER 2025-08-25 12:00 | Outpatient (CLI) | payer BC, SELFPAY ==
--- NOTE | ~2025-08-25 | MM_ITS ---
EXAMINATION: MM screening [facility] BI w carlos a HISTORY: Screening TECHNIQUE: Craniocaudal and mediolateral oblique 3-D tomosynthesis images were obtained and synthetic 2-D images were generated. CAD analysis was submitted and interpreted. COMPARISON: Comparison to multiple prior studies sequentially, with oldest reviewed study dated 10/10/2023. BREAST PARENCHYMAL COMPOSITION: Not dense: There are scattered areas of fibroglandular density. FINDINGS: Stable left breast asymmetry in the upper outer quadrant. There is no evidence of suspicious mass, calcification, or architectural distortion to suggest malignancy in either breast. There has been no suspicious interval change. IMPRESSION: 1. No mammographic evidence of malignancy. 2. Recommend routine screening mammography in one year. BI-RADS Category 1: Negative Reviewed, dictated and finalized at location B.
--- OUTSIDE RECORDS SUMMARY | 2025-08-25 12:03 | XMS_ITS | Clinical Summary ---
Author Organization [facility] Address [address] [place] [address] Phone Care Team Providers Care Licensing Representative Name Role Phone Unavailable Primary Care Provider Unavailabl e Social History Tobacco Use Types Packs/Day Years Used Date Smoking Tobacco: Never Assessed Comments Unknown Sex and Gender Information Value Date Recorded Sex Assigned at Not on file Legal Sex Female 9:24 AM CDT Gender Identity Not on file Sexual Orientation Not on file Plan of Treatment Health Maintenance Due Date Last Done Comments DTAP/TDAP/TD VACCINES (1 - Tdap) 2005 HEPATITIS B VACCINES (1 of 3 - 19+ 3-dose series) 10/26 HPV/Cotest (21-29) 2007 HPV VACCINES (1 - 3-dose SCDM series) 2013 CERVICAL CANCER SCREENING 2016 HPV/Cotest (30-65) 2016 PAP SMEAR 2016 INFLUENZA VACCINE (#1) 2025 Insurance [facility] BLUE ACCESS CHOICE
== END 2025-08-25 12:01 | disposition home or self-care (01) ==
PROVIDERS: PCP Family Medicine; Visit Provider Nurse Practitioner Family
DX: Z12.31 Encounter for screening mammogram for malignant neoplasm of breast (principal)
CPT/HCPCS: 77063; 77067

== ENCOUNTER 2025-10-05 08:29 | Outpatient (CLI) | payer BC, SELFPAY ==
--- OUTSIDE RECORDS SUMMARY | 2025-10-05 08:41 | XMS_ITS | Clinical Summary ---
Author Organization [facility] Address [address] [place] [address] Phone Care Team Providers Care Supervisor Paint Department Name Role Phone Unavailable Primary Care Provider [...] SMEAR 2016 INFLUENZA VACCINE (#1) 2025 Insurance [facility] BLUE ACCESS CHOICE
[2025-10-05 12:53] LABS: Hematocrit 41.9 % (37.0-47.0); Hemoglobin 13.5 g/dL (12.0-15.0); Immature Granulocyte Percent A 0.4 % (0-0.5); Lymphocytes Absolute Auto 3.10 K/mm3 (0.9-3.2); Mean Corpuscular HGB Conc 32.2 g/dl (32-36); Mean Corpuscular Hemoglobin 29.2 pg (26-34); Mean Corpuscular Volume 90.5 fl (80-100); Nucleated Red Blood Cells Absolute Auto 0.000 K/mm3 (0.0-0.012); Nucleated Red Blood Cells Perc 0.0 % (0.0-0.2); Platelet Count Result 306 k/mm3 (150-375); Red Blood Count 4.63 M/mm3 (4.2-5.4); White Blood Count 8.4 K/mm3 (4.5-10.0)
[2025-10-05 13:11] LABS: Alanine Aminotransferase 35 U/L (6-35); Albumin Level 4.3 g/dL (3.5-5.1); Alkaline Phosphatase 73 U/L (38-126); Anion Gap 8 mmol/L (4-12); Aspartate Amino Transferase 54 U/L (14-36); Bilirubin,Total 0.5 mg/dL (0.2-1.3); Blood Urea Nitrogen 11 mg/dL (7-17); Calcium 9.0 mg/dL (8.4-10.2); Carbon Dioxide 25 mmol/L (22-30); Chloride 105 mmol/L (98-107); Cholesterol 192 mg/dL (0-200); Estimated Glomerular Filt Rate > 60; Glucose 80 mg/dL (65-110); HDL Direct 51 mg/dL; Potassium 4.2 mmol/L (3.4-5.0); Sodium 138 mmol/L (137-145); Total Protein 7.4 g/dL (6.3-8.2); Triglycerides 86 mg/dL (<150)
[2025-10-05 13:42] LABS: Thyroid Stimulating Hormone 2.030 uIU/mL (0.465-4.680)
== END 2025-10-05 08:30 | disposition home or self-care (01) ==
LOC: ANHGOSHLAB 08:30
PROVIDERS: PCP Family Medicine; Visit Provider Family Medicine
DX: Z00.00 Encounter for general adult medical examination without abnormal findings (principal); I10 Essential (primary) hypertension
CPT/HCPCS: 36415; 80053; 80061; 84443; 85025